=== PATIENT | male | born 1950 | race Caucasian/White ===

== ENCOUNTER 2021-07-12 09:15 | Inpatient (IN) | payer OTHER, MEDICARE ==
--- NOTE | 2021-07-12 09:39 | ED Physician Documentation ---
PD HPI ABD PAIN - Stated complaint Stated Complaint: ABD PX - Chief complaint Chief Complaint: Abd Pain - History obtained from History obtained from: Patient - History of Present Illness Timing - onset: How many days ago (3) Timing - duration: Days (3) Timing - details: Gradual onset, Still present Quality: Cramping, Aching, Pain Location: RLQ Radiation: No: Chest, Lower back Improved by: No: Eating Worsened by: Eating Associated symptoms: Nausea, Diarrhea (loose the past day.). No: Fever, Vomiting, Constipation Similar symptoms before: Has not had sx before Recently seen: Surgery (prostate resection February 2021 without complications.) Review of Systems Constitutional: denies: Fever, Chills Nose: denies: Rhinorrhea / runny nose, Congestion Throat: denies: Sore throat Respiratory: denies: Cough GI: reports: Abdominal Pain, Nausea. denies: Vomiting, Diarrhea (but loose couple of times) : denies: Dysuria PD PAST MEDICAL HISTORY - Past Medical History Cardiovascular: None Respiratory: None Endocrine/Autoimmune: None GI: None : Other (prostate cancer in situ with prostatectomy several months ago. ) - Allergies Allergies/Adverse Reactions: Allergies Allergy/AdvReac Type Severity Reaction Status Date / Time milk Allergy Anaphylaxis Verified 07/12/21 09:31 naproxen [From Aleve] Allergy Anaphylaxis Verified 07/12/21 09:31 Penicillins Allergy Anaphylaxis Verified 07/12/21 09:31 PD ED PE NORMAL - Vitals Vital signs reviewed: Yes - General General: Alert and oriented X 3, No acute distress, Well developed/nourished - HEENT HEENT: Pharynx benign - Neck Neck: Supple, no meningeal sign, No adenopathy - Cardiac Cardiac: RRR, No murmur - Respiratory Respiratory: Clear bilaterally - Abdomen Abdomen: Soft, Non distended, No organomegaly, Other (tender RLQ with local guarding and rebound. No generalized rebound nor percussion tender. ) - Male Male : Deferred - Rectal Rectal: Deferred - Back Back: No CVA TTP - Derm Derm: Normal color, Warm and dry - Extremities Extremities: No edema, No calf tenderness / cord - Neuro Neuro: Alert and oriented X 3, No motor deficit, Normal speech Eye Opening: Spontaneous Motor: Obeys Commands Verbal: Oriented GCS Score: 15 - Psych Psych: Normal mood, Normal affect Results - Vitals Vitals: Vital Signs - 24 hr 07/12/21 09:20 Temperature 36.6 C Heart Rate 93 Respiratory 15 Rate Blood Pressure 143/74 H O2 Saturation 99 Oxygen O2 Source Room air - Labs Labs: Laboratory Tests 07/12/21 07/12/21 09:42 09:42 WBC 10.5 RBC 5.10 Hgb 14.9 Hct 43.5 MCV 85.3 MCH 29.2 MCHC 34.3 RDW 12.2 Plt Count 215 MPV 10.7 Neut # (Auto) 8.6 H Lymph # (Auto) 0.9 L [place] # (Auto) 0.9 Eos # (Auto) 0.1 Baso # (Auto) 0.0 Absolute Nucleated RBC 0.00 Nucleated RBC % 0.0 Sodium 135 Potassium 3.7 Chloride 98 L Carbon Dioxide 23 Anion Gap 14.0 H BUN 26 H Creatinine 1.3 H Estimated GFR (MDRD) 55 L Glucose 118 H Calcium 9.5 Total Bilirubin 2.0 H AST 50 H ALT 58 Alkaline Phosphatase 112 Total Protein 8.6 H Albumin 4.0 Globulin 4.6 H Albumin/Globulin Ratio 0.9 L Lipase 27 - Rads (name of study) abd/pelvic CT Radiology: Prelim report reviewed, Discussed with rads (acute appendicitis with local perforation. ), See rad report PD MEDICAL DECISION MAKING - ED course Complexity details: reviewed results, re-evaluated patient, considered differential, d/w patient, d/w protection consultant (Surgery Dr. Claire) Departure - Departure Disposition: ED Transfer to [facility] Clinical Impression: Abdominal pain Qualifiers: Abdominal location: right lower quadrant Qualified Code(s): R10.31 - Right lower quadrant pain Appendicitis Qualifiers: Appendicitis type: acute appendicitis Acute appendicitis type: with localized peritonitis Appendicitis gangrene presence: without gangrene Appendicitis perforation presence: with perforation Appendicitis abscess presence: without abscess Qualified Code(s): K35.32 - Acute appendicitis with perforation and localized peritonitis, without abscess Condition: Stable Record reviewed to determine appropriate education?: Yes
[2021-07-12 09:47] LABS: BASOPHILS % (AUTO) 0.3 %; EOSINOPHILS # (AUTO) 0.1 10^3/uL (0.0-0.7); EOSINOPHILS % (AUTO) 0.9 %; HCT - HEMATOCRIT 43.5 % (42.0-52.0); HGB - HEMOGLOBIN 14.9 g/dL (14.0-18.0); LYMPHOCYTES # (AUTO) 0.9 10^3/uL (1.5-3.5); LYMPHOCYTES % (AUTO) 8.5 %; MEAN CORPUSCULAR HEMOGLOBIN 29.2 pg (27.0-31.0); MEAN CORPUSCULAR HGB CONC 34.3 g/dL (32.0-36.0); MEAN CORPUSCULAR VOLUME 85.3 fL (80.0-94.0); MEAN PLATELET VOLUME 10.7 fL (7.4-11.4); MONOCYTES # (AUTO) 0.9 10^3/uL (0.0-1.0); MONOCYTES % (AUTO) 8.1 %; NEUTROPHILS # (AUTO) 8.6 10^3/uL (1.5-6.6); NEUTROPHILS % (AUTO) 81.9 %; PLT - PLATELET COUNT 215 10^3/uL (130-450); RED CELL DISTRIBUTION WIDTH 12.2 % (12.0-15.0); WHITE BLOOD COUNT 10.5 x10^3/uL (4.8-10.8)
[2021-07-12] MEDS ORDERED: HYDROmorphone 1 MG/ML CARPUJECT IVP STA (09:58)
[2021-07-12] MEDS ORDERED: SODIUM CHLORIDE 0.9% 1,000 ML IV STA (09:58)
[2021-07-12 10:00] LABS: ALBUMIN/GLOBULIN RATIO 0.9 (1.0-2.2); CALCIUM 9.5 mg/dL (8.5-10.3); CREATININE 1.3 mg/dL (0.6-1.2); POTASSIUM 3.7 mmol/L (3.5-5.0); TOTAL PROTEIN 8.6 g/dL (6.7-8.2)
[2021-07-12] MEDS ORDERED: IOVERSOL 320 100 ML VIAL IVP ONE ×2 (10:14→18:08)
--- NOTE | 2021-07-12 11:12 | CT Report ---
PROCEDURE: Abdomen/Pelvis W INDICATIONS: RLQ pain for 3 days, increasing CONTRAST: IV CONTRAST: Optiray 320 ml: 100 PO CONTRAST: *NO PO CONTRAST TECHNIQUE: After the administration of IV contrast, 5 mm thick sections acquired from the diaphragms to the symp hysis. 5 mm thick coronal and sagittal reformats were acquired. For radiation dose reduction, the f ollowing was used: automated exposure control, adjustment of mA and/or kV according to patient size. COMPARISON: None. FINDINGS: ABDOMEN: Lung bases: No acute findings. Heart:Normal in size. No pericardial effusion. Liver: Normal. Gallbladder: Negative Bile ducts: Normal. Pancreas: Normal. Spleen: Normal. Adrenals: Normal. Kidneys and ureters: Normal. Stomach and duodenum: Normal. Bowel: There is prominent right lower quadrant pericecal inflammatory changes, trace right lower quad rant fluid and few bubbles of extraluminal gas. The appendix appears hyperemic and enlarged measuring approximately 9 mm in diameter although not well seen due to inflammatory changes. No definite appen dicolith seen. No discrete abscess seen. There is incidental colonic diverticulosis. Other: Elsewhere, no free fluid Abdominal nodes: Normal. Aorta: Normal in size. IVC: Normal. Ventral wall: Normal. PELVIS: Bladder and reproductive: Unremarkable. Pelvic nodes: Normal. Inguinal: No hernia. Bones: No vertebral body compression fracture. No suspicious bone lesion. IMPRESSION: Perforated acute appendicitis, with a few scattered foci of intraperitoneal free air. No appendicolit h seen. Findings (including all critical results) and recommendations were personally telephoned and discusse d with Dr. Malcolm in the emergency department on 07-12-21 11:07 Reviewed by: Torito Méndez MD on 07/12/2021 11:11 AM PST Approved by: Torito Méndez MD on 07/12/2021 11:11 AM PST Station ID: [id number]
[2021-07-12] MEDS ORDERED: metroNIDAZOLE 500 MG/100 ML 500 MG/100 ML BAG IV ONE (11:18)
[2021-07-12] MEDS ORDERED: cefTRIAXone 1 GM VIAL IVP STA (11:18)
[2021-07-12] MEDS ORDERED: LACTATED RINGERS 1,000 ML IV STA (11:40)
--- NOTE | 2021-07-12 12:05 | SURGERY HX AND PHYSICAL(T) ---
Surgical History & Physical - Chief Complaint/HPI Chief Complaint: RLQ abdominal pain History of Present Illness: 71-year-old male from [place] visiting his son here in the [place] developed abdominal pain 3 days ago. Pain has persisted and localized to the right lower quadrant abdomen. He has been anorexic but no significant nausea or vomiting. He has had loose bowel movements. His only previous abdominal surgery was a robotic prostatectomy done 6 months ago. 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 He is no longer on anticoagulation. - PMH/PSH/Social Hx Does the pt have a hx of MRSA?: No Neurological History: None Cardiovascular: None Respiratory: None Endocrine/Autoimmune: None Gastrointestinal: None Urinary: Other (prostate cancer in situ with prostatectomy several months ago. ) - Home Meds and Allergies Allergies/Adverse Reactions: Allergies Allergy/AdvReac Type Severity Reaction Status Date / Time milk Allergy Anaphylaxis Verified 07/12/21 09:31 naproxen [From Aleve] Allergy Anaphylaxis Verified 07/12/21 09:31 Penicillins Allergy Anaphylaxis Verified 07/12/21 09:31 - Review of Systems Constitutional: No: Fever, Chills Respiratory: No: Shortness of breath, Cough - Vital Signs Heart Rate: 93 Blood Pressure: 143/74 Temperature: 36.6 C Respiratory Rate: 15 O2 Saturation: 99 Weight (kg): 79.832 kg Height: 1.78 m - Physical Exam General Appearance: positive: No acute distress Eyes Bilatera: positive: Normal inspection ENT: positive: ENT inspection nml Neck: positive: Nml inspection Respiratory: positive: No respiratory distress Cardiovascular: positive: Regular rate & rhythm Abdomen: positive: Other (Not distended, localized tenderness in the right lower quadrant. No generalized tenderness or rebound. Negative Rovsing's sign.) Neurologic/Psychiatric: positive: Oriented x3 - Patient Review Patient Review: Problems were reviewed with the patient during this visit. Medications were reviewed with the patient during this visit. Allergies were reviewed this patient during this visit. Pertinent Tests Reviewed: All pertitent test for this patient were reviewed. - Assessment & Plan Assessment and Plan: 71-year-old male with 3-day history of abdominal pain localizing the right lower quadrant with localized tenderness on exam and CT scan showing appendicitis and probable contained perforation of the appendix. Patient is receiving Ancef and Flagyl and will be taken to the operating room for a laparoscopic or possible open appendectomy. Risks of surgery have been discussed with the patient and he has signed consent to proceed.
[2021-07-12] MEDS ORDERED: ATROPINE ABBOJECT 1 MG/10 ML SYRINGE IVP PRN (12:52)
[2021-07-12] MEDS ORDERED: NALOXONE 0.4 MG/ML VIAL IVP PRN (12:52)
[2021-07-12] MEDS ORDERED: HYDROmorphone 0.5 MG/0.5 ML SYRINGE IVP PRN (12:52)
[2021-07-12] MEDS ORDERED: ONDANSETRON 4 MG/2 ML VIAL IVP PRN (12:52)
[2021-07-12] MEDS ORDERED: MORPHINE 2 MG/ML CARPUJECT IVP PRN (12:52)
[2021-07-12] MEDS ORDERED: fentaNYL 100 MCG/2 ML VIAL IVP PRN (12:52)
--- NOTE | 2021-07-12 12:52 | ANESTHESIA ---
Pre-Anesthesia VS, & Labs - Diagnosis Acute appendicitis - Procedure Lap Appy Vital Signs: Temp Pulse Resp BP Pulse Ox 36.6 C 93 15 143/74 H 99 07/12/21 12:11 07/12/21 12:11 07/12/21 12:11 07/12/21 12:11 07/12/21 12:11 Height: 5 ft 10 in Weight (kg): 79.832 kg Body Mass Index: 25.2 BMI Classification: Overweight - NPO >8 hours Last Fluid Intake: 0400 H2O - Lab Results Current Lab Results: Laboratory Tests 07/12/21 09:42: Sodium 135, Potassium 3.7, Chloride 98 L, Carbon Dioxide 23, Anion Gap 14.0 H, BUN 26 H, Creatinine 1.3 H, Estimated GFR (MDRD) 55 L, Glucose 118 H, Calcium 9.5, Total Bilirubin 2.0 H, AST 50 H, ALT 58, Alkaline Phosphatase 112, Total Protein 8.6 H, Albumin 4.0, Globulin 4.6 H, Albumin/Globulin Ratio 0.9 L, Lipase 27 07/12/21 09:42: WBC 10.5, RBC 5.10, Hgb 14.9, Hct 43.5, MCV 85.3, MCH 29.2, MCHC 34.3, RDW 12.2, Plt Count 215, MPV 10.7, Neut # (Auto) 8.6 H, Lymph # (Auto) 0.9 L, [place] # (Auto) 0.9, Eos # (Auto) 0.1, Baso # (Auto) 0.0, Absolute Nucleated RBC 0.00, Nucleated RBC % 0.0 Fish Bones: 07/12/21 09:42 07/12/21 09:42 Home Medications and Allergies Active Medications Lactated Ringer's (Lr) 1,000 mls @ 250 mls/hr IV .Q4H STA Stop: 07/12/21 15:39 Last Admin: 07/12/21 11:42 Dose: 250 mls/hr Documented by: Allergies/Adverse Reactions: Allergies Allergy/AdvReac Type Severity Reaction Status Date / Time milk Allergy Anaphylaxis Verified 07/12/21 09:31 naproxen [From Aleve] Allergy Anaphylaxis Verified 07/12/21 09:31 Penicillins Allergy Anaphylaxis Verified 07/12/21 09:31 Anes History & Medical History - Anesthetic History Anesthesia Complications: reports: Slow wake-up Family history of Anesthesia Complications: Denies Family history of Malignant Hyperthermia: Denies - Medical History Cardiovascular: reports: High cholesterol Pulmonary: reports: Other (Snores, scheduled for sleep study) Gastrointestinal: reports: GERD Urinary: reports: Other (prostate cancer in situ with prostatectomy several months ago. ) Neuro: reports: None Musculoskeletal: reports: None Endocrine/Autoimmune: reports: None Blood Disorders: reports: None Skin: reports: None Smoking Status: Former smoker (Quit 01/2021. 52 yr pack history) Psychosocial: reports: No issues indicated History of Cancer?: Yes Other Past Medical History: Prostatectomy 2020 s/p prostate cancer - Surgical History General: reports: Colonoscopy Eyes Ears Nose Throat (EENT): reports: Cataracts Urologic: reports: Prostatic surgery Exam General: Alert, Oriented x3, Cooperative, No acute distress Dental: WNL Mouth Openin Fingerbreadth Neck Mobility: Normal Mallampati classification: II Thyromental Distance: 4-6 cm Mental/Cognitive Status: Alert/Oriented X3, Normal for patient Plan Anesthesia Type: General Consent for Procedure(s) Verified and Reviewed: Yes Code Status: Attempt Resuscitation ASA classification: 2-Mild systemic disease Is this case an emergency?: Yes
[2021-07-12] MEDS ORDERED: BUPIVACAINE 0.25% PF 30 ML VIAL ONE (12:54)
[2021-07-12] MEDS ORDERED: LACTATED RINGERS 1,000 ML IV SCH ×2 (13:00→16:00)
[2021-07-12] MEDS ORDERED: PROPOFOL 200 MG/20 ML VIAL IVP ONE (13:27)
[2021-07-12] MEDS ORDERED: fentaNYL 100 MCG/2 ML VIAL ONE ×2 (13:27→13:43)
[2021-07-12] MEDS ORDERED: LIDOCAINE-MPF 2% 5 ML VIAL ONE (13:27)
[2021-07-12] MEDS ORDERED: ROCURONIUM 50 MG/5 ML VIAL ONE (13:27)
[2021-07-12 13:28] LABS: B. PARAPERTUSSIS- RESP PCR PAN NOT DETECTED; B. PERTUSSIS- RESP PCR PANEL NOT DETECTED; C. PNEUMONIAE- RESP PCR PANEL NOT DETECTED; CORONAVIRUS 229E-RESP PCR NOT DETECTED; CORONAVIRUS HKU1-RESP PCR NOT DETECTED; CORONAVIRUS NL63-RESP PCR NOT DETECTED; CORONAVIRUS OC43-RESP PCR NOT DETECTED; HUMAN METAPNEUMOVIRUS NOT DETECTED; INFLUENZA A- RESP PCR PANEL NOT DETECTED; INFLUENZA B - RESP PCR PANEL NOT DETECTED; M. PNEUMONIAE- RESP PCR PANEL NOT DETECTED; PARAINFLUENZA VIRUS 1 NOT DETECTED; PARAINFLUENZA VIRUS 2 NOT DETECTED; PARAINFLUENZA VIRUS 3 NOT DETECTED; PARAINFLUENZA VIRUS 4 NOT DETECTED; RHINOVIRUS/ENTEROVIRUS NOT DETECTED; RSV- RESP PCR PANEL NOT DETECTED; SARS-CoV-2 -RESP PCR PANEL NOT DETECTED
[2021-07-12] MEDS ORDERED: DEXAMETHASONE 4 MG/ML VIAL ONE (13:35)
[2021-07-12] MEDS ORDERED: ONDANSETRON 4 MG/2 ML VIAL ONE (13:35)
[2021-07-12] MEDS ORDERED: BUPIVACAINE 0.25% PF 30 ML VIAL SUBQ ONE (13:47)
[2021-07-12] MEDS ORDERED: SUGAMMADEX 200 MG/2 ML VIAL IVP ONE (14:41)
[2021-07-12] MEDS ORDERED: LACTATED RINGERS 500 ML IV ONE (14:56)
--- NOTE | 2021-07-12 15:18 | ANESTHESIA POST OP EVALUATION ---
Anesthesia Post Eval - Post Anesthesia Eval Vitals: Last Vital Signs Temp 36.6 C 07/12/21 15:10 Pulse 84 07/12/21 15:10 Resp 17 07/12/21 15:10 BP 160/85 H 07/12/21 15:10 Pulse Ox 95 07/12/21 15:10 CV Function Including HR & BP: Stable Pain Control: Satisfactory Nausea & Vomiting: Negative Mental Status: Patient Participates Respiratory Status: Airway Patent Hydration Status: Satisfactory Anesthesia Complications: None
--- NOTE | 2021-07-12 15:20 | OPERATIVE REPORT ---
Operative Report - General Admit Date: 07/12/21 Procedure Date: 07/12/21 Planned Procedure: Lap appendectomy Pre-Op Diagnosis: Perforated appendicitis, localized Procedure Performed: Lap appendectomy Post Op Diagnosis: Perforated appendicitis, localized - Procedure Note Primary Surgeon: Rashawn Claire Anesthesia Provider: Shanique SANCHEZ Anesthesia Technique: General ET tube Estimated Blood Loss (mL): 100 Indications: Perforated appendicitis, localized to RLQ Findings: Localized perforation with extensive adhesions and adjacent small bowel inflammation Complications: none - Other Other Information/Narrative: The patient was taken to the operating room where general anesthesia was induced and the abdomen was prepped with ChloraPrep and sterilely draped in usual fashion. Scalpel was used to make incision at the umbilicus and Metzenbaum scissors used to enter the peritoneum and a 5 mm trocar was introduced atraumatically. CO2 was insufflated and laparoscope was inserted and used to visualize the anterior abdominal wall as a 12 mm and 5 mm trocar placed in the left lower abdomen and right lower abdomen, respectively. The appendix was identified and seen to be adhered to the right pelvic wall. The appendix had perforated into the mesoappendix and there was some purulent drainage from this area. Adhesions to the right pelvic wall were taken down with blunt and saline irrigation as well as cautery. The appendix was eventually mobilized at its origin. 2 applications of surgical stapler to the mesoappendix with vascular load were used to divide the mesoappendix and a single application of stapler across the base of the appendix completed the resection. The appendix was placed into an Endopouch and withdrawn through the 12 mm trocar site. The bed of dissection had some oozing which was controlled with cautery.The right lower quadrant was irrigated well with saline and aspirated dry. A Keenan drain was placed in the right lower quadrant through the right lower quadrant 5 mm trocar site. The drain was sutured to skin with a 2-0 nylon stitch. CO2 was desufflated from the abdomen and all trochars were removed. Fascia at the u mbilicus and left lower quadrant incisions were closed with 2-0 Vicryl. Skin incisions were closed with 4-0 Monocryl and Dermabond. A dressing was applied to the drain site in the right lower quadrant. The patient was extubated and taken to recovery in stable condition.
--- NOTE | 2021-07-12 16:23 | PHARMACY PROGRESS NOTE ---
- Best Possible Medication History Admit Date and Time: 07/12/21 1148 Processed by: Pharmacy Medication History completed: Yes Patient Interview: Completed Secondary Source(s): Pharmacy records, Insurance records As the person ultimately responsible for medication therapy, providers are able to order a medication from an existing home medication list in [facility] via the "Reconcile Routine" prior to Confirmation of that medication by accounting support specialist. Such practice is discouraged except when the physician, in their clinical judgment, deems that a medical need exists for a medication without regard to previous use.
[2021-07-12] MEDS: HYDROmorphone 0.5 MG/0.5 ML SYRINGE IVP PRN ×2 (16:49→18:51)
[2021-07-12] MEDS: SODIUM CHLORIDE 0.9% 1,000 ML IV SCH (16:54)
[2021-07-12] MEDS: metroNIDAZOLE 500 MG/100 ML 500 MG/100 ML BAG IV SCH (20:50)
[2021-07-12] MEDS: ATORVASTATIN 10 MG TABLET PO SCH (20:53)
[2021-07-12] MEDS: oxyCODONE 5 MG TABLET PO PRN (20:53)
[2021-07-12] MEDS: ACETAMINOPHEN 500 MG TABLET PO PRN (21:22)
[2021-07-13] MEDS: oxyCODONE 5 MG TABLET PO PRN ×5 (01:03→19:58)
[2021-07-13] MEDS: metroNIDAZOLE 500 MG/100 ML 500 MG/100 ML BAG IV SCH ×3 (03:36→19:38)
[2021-07-13] MEDS: SODIUM CHLORIDE 0.9% 1,000 ML IV SCH ×2 (03:36→15:50)
[2021-07-13] MEDS: PANTOPRAZOLE 40 MG TABLET PO SCH (06:11)
[2021-07-13] MEDS: ACETAMINOPHEN 500 MG TABLET PO PRN ×3 (06:11→19:58)
[2021-07-13 06:13] LABS: BASOPHILS % (AUTO) 0.3 %; EOSINOPHILS % (AUTO) 0.1 %; HCT - HEMATOCRIT 34.1 % (42.0-52.0); HGB - HEMOGLOBIN 11.6 g/dL (14.0-18.0); LYMPHOCYTES # (AUTO) 0.9 10^3/uL (1.5-3.5); LYMPHOCYTES % (AUTO) 11.5 %; MEAN CORPUSCULAR VOLUME 88.1 fL (80.0-94.0); MEAN PLATELET VOLUME 10.3 fL (7.4-11.4); MONOCYTES # (AUTO) 0.8 10^3/uL (0.0-1.0); MONOCYTES % (AUTO) 9.5 %; NEUTROPHILS # (AUTO) 6.3 10^3/uL (1.5-6.6); NEUTROPHILS % (AUTO) 78.3 %; PLT - PLATELET COUNT 168 10^3/uL (130-450); RED BLOOD COUNT 3.87 10^6/uL (4.70-6.10); RED CELL DISTRIBUTION WIDTH 12.4 % (12.0-15.0)
[2021-07-13] MEDS: cefTRIAXone 2 GM in SODIUM CHLORIDE 0.9% MINIBAG 100 ML IV SCH (09:49)
[2021-07-13] MEDS: ENOXAPARIN 80 MG/0.8 ML SYRINGE SUBQ SCH ×2 (09:49→19:39)
[2021-07-13] MEDS: TADALAFIL 5 MG PO SCH (09:50)
--- NOTE | 2021-07-13 15:47 | PROVIDER PROGRESS NOTE ---
Subjective - General Admit Date: 07/12/21 Procedure Date: 07/12/21 Post Op Days: 1 Procedure Performed: Lap appy - Review of Systems Wound/Incisions: positive: Healing well Drain Type: Keenan Drain Output Description: Serous General: positive: No symptoms, Fever (early this AM) HEENT: positive: No symptoms Pulmonary: positive: No symptoms Cardiovascular: positive: No symptoms Gastrointestinal: positive: Other (Very hungry). negative: Nausea, Vomiting Genitourinary: positive: No symptoms All Other Systems: positive: Reviewed and negative - Other Other Information/Narrative: The patient reports his pain is reasonably well controlled. Uncomfortable but manageable. Very hungry Objective - Patient Data Reviewed Vital Signs: Yes Vital Signs: Vital Signs x48h Temp Pulse Resp BP Pulse Ox 07/13/21 12:32 37.1 C 74 17 121/67 96 07/13/21 08:00 36.7 C 66 16 112/64 96 Weight: Weight 07/11/21 07/12/21 07/13/21 23:59 23:59 23:59 Weight (kg) 77.836 kg Intake & Output: Intake and Output Totals x24h 07/11/21 07/12/21 07/13/21 23:59 23:59 23:59 Intake Total 3938.333 1771.667 Output Total 70 325 Balance 3868.333 1446.667 - Lab Results Lab Results: 07/13/21 06:02 07/12/21 09:42 Other Lab Results: Lab Results x24hrs 07/13/21 Range/Units 06:02 WBC 8.0 (4.8-10.8) x10^3/uL RBC 3.87 L (4.70-6.10) 10^6/uL Hgb 11.6 L (14.0-18.0) g/dL Hct 34.1 L (42.0-52.0) % MCV 88.1 (80.0-94.0) fL MCH 30.0 (27.0-31.0) pg MCHC 34.0 (32.0-36.0) g/dL RDW 12.4 (12.0-15.0) % Plt Count 168 (130-450) 10^3/uL MPV 10.3 (7.4-11.4) fL Neut # (Auto) 6.3 (1.5-6.6) 10^3/uL Lymph # (Auto) 0.9 L (1.5-3.5) 10^3/uL [place] # (Auto) 0.8 (0.0-1.0) 10^3/uL Eos # (Auto) 0.0 (0.0-0.7) 10^3/uL Baso # (Auto) 0.0 (0.0-0.1) 10^3/uL Absolute Nucleated RBC 0.00 x10^3/uL Nucleated RBC % 0.0 /100WBC - Current Medications Current Medications: Current Medications Generic Name Dose Route Start Last Admin Trade Name Freq PRN Reason Stop Dose Admin Acetaminophen 500 mg 07/12/21 21:11 07/13/21 06:11 Acetaminophen 500 Mg Tablet PO 500 mg Q4HR PRN Administration Pain or Fever > 38C (100.4F) Atorvastatin Calcium 10 mg 07/12/21 21:00 07/12/21 20:53 Atorvastatin 10 Mg Tablet PO 10 mg QPM SCOTT Administration Enoxaparin Sodium 80 mg 07/13/21 09:00 07/13/21 09:49 Enoxaparin 80 Mg/0.8 Ml Syringe SUBQ 80 mg BID SCOTT Administration Hydromorphone HCl 0.5 mg 07/12/21 16:30 07/12/21 18:51 Hydromorphone 0.5 Mg/0.5 Ml Syringe IVP 0.5 mg Q2H PRN Administration PAIN Ceftriaxone Sodium 2 gm/ 100 mls @ 200 mls/hr 07/13/21 09:00 07/13/21 11:42 Sodium Chloride IV Infused DAILY SCOTT Infusion Sodium Chloride 1,000 mls @ 100 mls/hr 07/12/21 16:00 07/13/21 03:36 Normal Saline 0.9% IV 100 mls/hr .Q10H SCOTT Administration Metronidazole 500 mg in 100 mls @ 100 mls/hr 07/12/21 20:00 07/13/21 14:59 Flagyl 500 Mg/100 Ml IV Infused Q8H SCOTT Infusion Oxycodone HCl 5 mg 07/12/21 16:29 07/13/21 12:11 Oxycodone 5 Mg Tablet PO 5 mg Q4HR PRN Administration PAIN Pantoprazole Sodium 40 mg 07/13/21 07:00 07/13/21 06:11 Pantoprazole 40 Mg Tablet PO 40 mg QDAC SCOTT Administration Tadalafil 5 Mg 1 each 07/13/21 09:00 07/13/21 09:50 PO Not Given DAILY SCOTT - Physical Exam Wound/Incisions: positive: Dressing dry and intact General Appearance: positive: No acute distress, Alert Eyes Bilateral: positive: Normal inspection Respiratory: positive: No respiratory distress, Breath sounds nml Cardiovascular: positive: Regular rate & rhythm Abdomen: positive: Nml bowel sounds, Tenderness, Other (Drain is serous and thin) Neurologic/Psychiatric: positive: Oriented x3 ABX Reporting Has patient been on IV antibiotics over the past 48 hours?: Yes Impression/Plan - Problem List Problem List: 1. Acute suppurative appendicitis - s/p appendectomy 2. Continue Rocephin 3. No nausea - will advance diet 4. Recheck labs in the AM
[2021-07-13] MEDS: ATORVASTATIN 10 MG TABLET PO SCH (19:38)
[2021-07-13] MEDS: SENNA 8.6 MG TABLET PO SCH (19:38)
[2021-07-14] MEDS: oxyCODONE 5 MG TABLET PO PRN (00:21)
[2021-07-14] MEDS: ACETAMINOPHEN 500 MG TABLET PO PRN ×3 (00:21→20:27)
[2021-07-14] MEDS ORDERED: METOCLOPRAMIDE 10 MG/2 ML VIAL IVP PRN (01:21)
[2021-07-14] MEDS ORDERED: CALCIUM CARBONATE CHEW 500 MG TABLET PO PRN (01:25)
[2021-07-14] MEDS: ONDANSETRON 4 MG/2 ML VIAL IVP PRN ×2 (02:37→19:33)
[2021-07-14] MEDS: SODIUM CHLORIDE 0.9% 1,000 ML IV SCH ×3 (02:41→18:33)
[2021-07-14] MEDS: metroNIDAZOLE 500 MG/100 ML 500 MG/100 ML BAG IV SCH ×3 (03:54→19:33)
[2021-07-14] MEDS: PANTOPRAZOLE 40 MG TABLET PO SCH (06:07)
[2021-07-14 06:19] LABS: BASOPHILS % (AUTO) 0.3 %; EOSINOPHILS # (AUTO) 0.1 10^3/uL (0.0-0.7); EOSINOPHILS % (AUTO) 1.2 %; HCT - HEMATOCRIT 38.4 % (42.0-52.0); LYMPHOCYTES # (AUTO) 0.8 10^3/uL (1.5-3.5); LYMPHOCYTES % (AUTO) 8.8 %; MEAN CORPUSCULAR HEMOGLOBIN 29.3 pg (27.0-31.0); MEAN CORPUSCULAR HGB CONC 33.9 g/dL (32.0-36.0); MEAN CORPUSCULAR VOLUME 86.5 fL (80.0-94.0); MEAN PLATELET VOLUME 10.3 fL (7.4-11.4); MONOCYTES # (AUTO) 0.6 10^3/uL (0.0-1.0); MONOCYTES % (AUTO) 7.4 %; NEUTROPHILS # (AUTO) 7.1 10^3/uL (1.5-6.6); NEUTROPHILS % (AUTO) 81.8 %; PLT - PLATELET COUNT 195 10^3/uL (130-450); RED BLOOD COUNT 4.44 10^6/uL (4.70-6.10); RED CELL DISTRIBUTION WIDTH 12.6 % (12.0-15.0); WHITE BLOOD COUNT 8.6 x10^3/uL (4.8-10.8)
[2021-07-14] MEDS: SENNA 8.6 MG TABLET PO SCH (09:26)
[2021-07-14] MEDS: ENOXAPARIN 80 MG/0.8 ML SYRINGE SUBQ SCH ×2 (09:26→20:27)
[2021-07-14] MEDS: TADALAFIL 5 MG PO SCH (09:28)
[2021-07-14] MEDS: cefTRIAXone 2 GM in SODIUM CHLORIDE 0.9% MINIBAG 100 ML IV SCH (09:33)
--- NOTE | 2021-07-14 12:46 | PROVIDER PROGRESS NOTE ---
Subjective - General Admit Date: 07/12/21 Procedure Date: 07/12/21 Post Op Days: 2 Procedure Performed: Lap appy - Review of Systems Wound/Incisions: positive: Dressing dry and intact Drain Type: Keenan Drain Output Description: Serous General: positive: No symptoms, Fever (early this AM) HEENT: positive: No symptoms Pulmonary: positive: No symptoms Cardiovascular: positive: No symptoms Gastrointestinal: positive: Other (Very hungry). negative: Nausea, Vomiting Genitourinary: positive: No symptoms All Other Systems: positive: Reviewed and negative - Other Other Information/Narrative: Nausea and vomiting over night and this morning. Drain remains serous. Afebrile x 24 hours. Objective - Patient Data Reviewed Vital Signs: Yes Vital Signs: Vital Signs x48h Temp Pulse Resp BP Pulse Ox 07/14/21 12:09 36.6 C 91 20 151/87 H 94 07/14/21 07:48 37 C 90 16 148/82 H 95 07/14/21 06:24 37.1 C 98 18 156/90 H 96 Weight: Weight 07/12/21 07/13/21 07/14/21 23:59 23:59 23:59 Weight (kg) 77.836 kg Intake & Output: Intake and Output Totals x24h 07/12/21 07/13/21 07/14/21 23:59 23:59 23:59 Intake Total 3938.333 3800.000 961.667 Output Total 70 335 1315 Balance 3868.333 3465.000 -353.333 - Lab Results Lab Results: 07/14/21 06:03 07/12/21 09:42 Other Lab Results: Lab Results x24hrs 07/14/21 Range/Units 06:03 WBC 8.6 (4.8-10.8) x10^3/uL RBC 4.44 L (4.70-6.10) 10^6/uL Hgb 13.0 L (14.0-18.0) g/dL Hct 38.4 L (42.0-52.0) % MCV 86.5 (80.0-94.0) fL MCH 29.3 (27.0-31.0) pg MCHC 33.9 (32.0-36.0) g/dL RDW 12.6 (12.0-15.0) % Plt Count 195 (130-450) 10^3/uL MPV 10.3 (7.4-11.4) fL Neut # (Auto) 7.1 H (1.5-6.6) 10^3/uL Lymph # (Auto) 0.8 L (1.5-3.5) 10^3/uL [place] # (Auto) 0.6 (0.0-1.0) 10^3/uL Eos # (Auto) 0.1 (0.0-0.7) 10^3/uL Baso # (Auto) 0.0 (0.0-0.1) 10^3/uL Absolute Nucleated RBC 0.00 x10^3/uL Nucleated RBC % 0.0 /100WBC - Current Medications Current Medications: Current Medications Generic Name Dose Route Start Last Admin Trade Name Freq PRN Reason Stop Dose Admin Acetaminophen 500 mg 07/12/21 21:11 07/14/21 06:08 Acetaminophen 500 Mg Tablet PO 500 mg Q4HR PRN Administration Pain or Fever > 38C (100.4F) Atorvastatin Calcium 10 mg 07/12/21 21:00 07/13/21 19:38 Atorvastatin 10 Mg Tablet PO 10 mg QPM SCOTT Administration Enoxaparin Sodium 80 mg 07/13/21 09:00 07/14/21 09:26 Enoxaparin 80 Mg/0.8 Ml Syringe SUBQ 80 mg BID SCOTT Administration Hydromorphone HCl 0.5 mg 07/12/21 16:30 07/12/21 18:51 Hydromorphone 0.5 Mg/0.5 Ml Syringe IVP 0.5 mg Q2H PRN Administration PAIN Ceftriaxone Sodium 2 gm/ 100 mls @ 200 mls/hr 07/13/21 09:00 07/14/21 11:29 Sodium Chloride IV Infused DAILY SCOTT Infusion Sodium Chloride 1,000 mls @ 100 mls/hr 07/12/21 16:00 07/14/21 02:41 Normal Saline 0.9% IV 100 mls/hr .Q10H SCOTT Administration Metronidazole 500 mg in 100 mls @ 100 mls/hr 07/12/21 20:00 07/14/21 12:07 Flagyl 500 Mg/100 Ml IV 100 mls/hr Q8H SCOTT Administration Ondansetron HCl 4 mg 07/14/21 01:22 07/14/21 02:37 Ondansetron 4 Mg/2 Ml Vial IVP 4 mg Q6HR PRN Administration Nausea / Vomiting Oxycodone HCl 5 mg 07/12/21 16:29 07/14/21 00:21 Oxycodone 5 Mg Tablet PO 5 mg Q4HR PRN Administration PAIN Pantoprazole Sodium 40 mg 07/13/21 07:00 07/14/21 06:07 Pantoprazole 40 Mg Tablet PO 40 mg QDAC SCOTT Administration Tadalafil 5 Mg 1 each 07/13/21 09:00 07/14/21 09:28 PO Not Given DAILY SCOTT Senna 8.6 - 17.2 mg 07/13/21 18:04 07/14/21 09:26 Senna 8.6 Mg Tablet PO 8.6 mg DAILY SCOTT Administration - Physical Exam Wound/Incisions: positive: Dressing dry and intact General Appearance: positive: No acute distress Eyes Bilateral: positive: Normal inspection, PERRL, EOMI Neck: positive: Nml inspection, No JVD Respiratory: positive: No respiratory distress, Breath sounds nml Cardiovascular: positive: Regular rate & rhythm Abdomen: positive: Other (Appropriately tender with hypoactive bowel tones) Skin: positive: Color nml Neurologic/Psychiatric: positive: Oriented x3 ABX Reporting Has patient been on IV antibiotics over the past 48 hours?: Yes Impression/Plan - Problem List Problem List: 1. Acute suppurative appendicitis with perforation - improving wbcs and drain output. Continue Rocephin 2. Post operative ileus - not unexpected in this setting. Return to NPO, add reglan 3. All vitals within acceptable limits
[2021-07-14] MEDS: METOCLOPRAMIDE 10 MG/2 ML VIAL IVP SCH ×3 (13:27→23:58)
[2021-07-14] MEDS: ATORVASTATIN 10 MG TABLET PO SCH (20:27)
[2021-07-15] MEDS: metroNIDAZOLE 500 MG/100 ML 500 MG/100 ML BAG IV SCH ×3 (04:20→19:55)
[2021-07-15] MEDS: ONDANSETRON 4 MG/2 ML VIAL IVP PRN (06:16)
[2021-07-15] MEDS: PANTOPRAZOLE 40 MG TABLET PO SCH (06:16)
[2021-07-15] MEDS: SODIUM CHLORIDE 0.9% 1,000 ML IV SCH ×2 (07:00→13:55)
[2021-07-15] MEDS: METOCLOPRAMIDE 10 MG/2 ML VIAL IVP SCH ×4 (07:05→23:56)
[2021-07-15 07:18] LABS: BASOPHILS % (AUTO) 0.2 %; EOSINOPHILS % (AUTO) 0.3 %; HCT - HEMATOCRIT 39.5 % (42.0-52.0); HGB - HEMOGLOBIN 13.7 g/dL (14.0-18.0); LYMPHOCYTES # (AUTO) 0.7 10^3/uL (1.5-3.5); LYMPHOCYTES % (AUTO) 7.2 %; MEAN CORPUSCULAR HEMOGLOBIN 29.7 pg (27.0-31.0); MEAN CORPUSCULAR HGB CONC 34.7 g/dL (32.0-36.0); MEAN CORPUSCULAR VOLUME 85.7 fL (80.0-94.0); MEAN PLATELET VOLUME 10.1 fL (7.4-11.4); MONOCYTES # (AUTO) 0.6 10^3/uL (0.0-1.0); MONOCYTES % (AUTO) 6.8 %; NEUTROPHILS # (AUTO) 7.9 10^3/uL (1.5-6.6); NEUTROPHILS % (AUTO) 85.1 %; PLT - PLATELET COUNT 247 10^3/uL (130-450); RED BLOOD COUNT 4.61 10^6/uL (4.70-6.10); RED CELL DISTRIBUTION WIDTH 12.6 % (12.0-15.0); WHITE BLOOD COUNT 9.3 x10^3/uL (4.8-10.8)
[2021-07-15] MEDS: cefTRIAXone 2 GM in SODIUM CHLORIDE 0.9% MINIBAG 100 ML IV SCH (08:57)
[2021-07-15] MEDS: ENOXAPARIN 80 MG/0.8 ML SYRINGE SUBQ SCH ×2 (08:58→21:20)
[2021-07-15] MEDS: SENNA 8.6 MG TABLET PO SCH (09:00)
[2021-07-15] MEDS: TADALAFIL 5 MG PO SCH (09:00)
--- NOTE | 2021-07-15 15:47 | PROVIDER PROGRESS NOTE ---
Subjective - General Admit Date: 07/12/21 Procedure Date: 07/12/21 Post Op Days: 3 Procedure Performed: Lap appy - Review of Systems Wound/Incisions: positive: Dressing dry and intact Drain Type: Keenan Drain Output Description: Serous General: positive: No symptoms, Fever (early this AM) HEENT: positive: No symptoms Pulmonary: positive: No symptoms Cardiovascular: positive: No symptoms Gastrointestinal: positive: Other (Very hungry). negative: Nausea, Vomiting Genitourinary: positive: No symptoms All Other Systems: positive: Reviewed and negative - Other Other Information/Narrative: Another episode of emesis this AM. Patient says this was not associated with nausea but was due to reflux. He denies any nausea and would like to try some food. Had a small bowel movement today. He has been afebrile. Pain is reasonably well controlled. Objective - Patient Data Reviewed Vital Signs: Yes Vital Signs: Vital Signs x48h Temp Pulse Resp BP Pulse Ox 07/15/21 11:18 36.9 C 84 19 145/81 H 94 Intake & Output: Intake and Output Totals x24h 07/13/21 07/14/21 07/15/21 23:59 23:59 23:59 Intake Total 3800.000 2161.667 1300 Output Total 335 1525 660 Balance 3465.000 636.667 640 - Lab Results Lab Results: 07/15/21 07:11 07/12/21 09:42 Other Lab Results: Lab Results x24hrs 07/15/21 Range/Units 07:11 WBC 9.3 (4.8-10.8) x10^3/uL RBC 4.61 L (4.70-6.10) 10^6/uL Hgb 13.7 L (14.0-18.0) g/dL Hct 39.5 L (42.0-52.0) % MCV 85.7 (80.0-94.0) fL MCH 29.7 (27.0-31.0) pg MCHC 34.7 (32.0-36.0) g/dL RDW 12.6 (12.0-15.0) % Plt Count 247 (130-450) 10^3/uL MPV 10.1 (7.4-11.4) fL Neut # (Auto) 7.9 H (1.5-6.6) 10^3/uL Lymph # (Auto) 0.7 L (1.5-3.5) 10^3/uL [place] # (Auto) 0.6 (0.0-1.0) 10^3/uL Eos # (Auto) 0.0 (0.0-0.7) 10^3/uL Baso # (Auto) 0.0 (0.0-0.1) 10^3/uL Absolute Nucleated RBC 0.00 x10^3/uL Nucleated RBC % 0.0 /100WBC - Current Medications Current Medications: Current Medications Generic Name Dose Route Start Last Admin Trade Name Freq PRN Reason Stop Dose Admin Acetaminophen 500 mg 07/12/21 21:11 07/14/21 20:27 Acetaminophen 500 Mg Tablet PO 500 mg Q4HR PRN Administration Pain or Fever > 38C (100.4F) Atorvastatin Calcium 10 mg 07/12/21 21:00 07/14/21 20:27 Atorvastatin 10 Mg Tablet PO 10 mg QPM SCOTT Administration Calcium Carbonate/Glycine 500 mg 07/14/21 01:25 07/15/21 05:28 Calcium Carbonate Chew 500 Mg Tablet PO 07/17/21 01:24 500 mg BID PRN Administration Heartburn Enoxaparin Sodium 80 mg 07/13/21 09:00 07/15/21 08:58 Enoxaparin 80 Mg/0.8 Ml Syringe SUBQ 80 mg BID SCOTT Administration Hydromorphone HCl 0.5 mg 07/12/21 16:30 07/12/21 18:51 Hydromorphone 0.5 Mg/0.5 Ml Syringe IVP 0.5 mg Q2H PRN Administration PAIN Ceftriaxone Sodium 2 gm/ 100 mls @ 200 mls/hr 07/13/21 09:00 07/15/21 09:30 Sodium Chloride IV Infused DAILY SCOTT Infusion Sodium Chloride 1,000 mls @ 100 mls/hr 07/12/21 16:00 07/15/21 13:55 Normal Saline 0.9% IV 100 mls/hr .Q10H SCOTT Administration Metronidazole 500 mg in 100 mls @ 100 mls/hr 07/12/21 20:00 07/15/21 12:40 Flagyl 500 Mg/100 Ml IV Infused Q8H SCOTT Infusion Metoclopramide HCl 5 mg 07/14/21 13:00 07/15/21 11:40 Metoclopramide 10 Mg/2 Ml Vial IVP 5 mg Q6HR SCOTT Administration Ondansetron HCl 4 mg 07/14/21 01:22 07/15/21 06:16 Ondansetron 4 Mg/2 Ml Vial IVP 4 mg Q6HR PRN Administration Nausea / Vomiting Oxycodone HCl 5 mg 07/12/21 16:29 07/14/21 00:21 Oxycodone 5 Mg Tablet PO 5 mg Q4HR PRN Administration PAIN Tadalafil 5 Mg 1 each 07/13/21 09:00 07/15/21 09:00 PO Not Given DAILY SCOTT Senna 8.6 - 17.2 mg 07/13/21 18:04 07/15/21 09:00 Senna 8.6 Mg Tablet PO Not Given DAILY SCOTT - Physical Exam Wound/Incisions: positive: Healing well, Other (drain outut is serous) General Appearance: positive: No acute distress, Alert Eyes Bilateral: positive: Normal inspection, PERRL, EOMI ENT: positive: ENT inspection nml Respiratory: positive: Chest non-tender, No respiratory distress Cardiovascular: positive: Regular rate & rhythm Abdomen: positive: Nml bowel sounds, Tenderness ABX Reporting Has patient been on IV antibiotics over the past 48 hours?: Yes Impression/Plan - Problem List Problem List: 1. Perforated appendicitis with abscess - improving clinically. WBC within normal range but differently not quite normal. Will recheck labs and reasses in the AM 2. Vomiting and reflux - restart patients outpatient PPI as he reports it works much better than protonix 3. FEN - had a bowel movement today so will try to advance diet once again.
[2021-07-15] MEDS: LANSOPRAZOLE 15 MG CAPSULE PO SCH (16:32)
[2021-07-15] MEDS: ATORVASTATIN 10 MG TABLET PO SCH (21:20)
[2021-07-16] MEDS: SODIUM CHLORIDE 0.9% 1,000 ML IV SCH (00:57)
[2021-07-16] MEDS: metroNIDAZOLE 500 MG/100 ML 500 MG/100 ML BAG IV SCH (03:39)
[2021-07-16 05:52] LABS: BASOPHILS % (AUTO) 0.3 %; EOSINOPHILS # (AUTO) 0.2 10^3/uL (0.0-0.7); EOSINOPHILS % (AUTO) 2.7 %; HCT - HEMATOCRIT 36.1 % (42.0-52.0); HGB - HEMOGLOBIN 12.1 g/dL (14.0-18.0); LYMPHOCYTES # (AUTO) 1.2 10^3/uL (1.5-3.5); LYMPHOCYTES % (AUTO) 14.8 %; MEAN CORPUSCULAR HEMOGLOBIN 29.4 pg (27.0-31.0); MEAN CORPUSCULAR HGB CONC 33.5 g/dL (32.0-36.0); MEAN CORPUSCULAR VOLUME 87.6 fL (80.0-94.0); MEAN PLATELET VOLUME 10.1 fL (7.4-11.4); MONOCYTES # (AUTO) 0.6 10^3/uL (0.0-1.0); MONOCYTES % (AUTO) 7.9 %; NEUTROPHILS # (AUTO) 5.8 10^3/uL (1.5-6.6); NEUTROPHILS % (AUTO) 73.7 %; PLT - PLATELET COUNT 245 10^3/uL (130-450); RED BLOOD COUNT 4.12 10^6/uL (4.70-6.10); RED CELL DISTRIBUTION WIDTH 12.5 % (12.0-15.0); WHITE BLOOD COUNT 7.9 x10^3/uL (4.8-10.8)
[2021-07-16 06:04] LABS: ALBUMIN 2.9 g/dL (3.2-5.5); BILIRUBIN,TOTAL 0.6 mg/dL (0.2-1.0); CALCIUM 8.3 mg/dL (8.5-10.3); POTASSIUM 3.4 mmol/L (3.5-5.0); TOTAL PROTEIN 5.7 g/dL (6.7-8.2)
[2021-07-16] MEDS: METOCLOPRAMIDE 10 MG/2 ML VIAL IVP SCH (06:42)
[2021-07-16] MEDS: LANSOPRAZOLE 15 MG CAPSULE PO SCH (06:43)
[2021-07-16] MEDS ORDERED: PANTOPRAZOLE 40 MG TABLET PO SCH (07:00)
[2021-07-16 07:33] VITALS: BP 147/73
--- NOTE | 2021-07-16 08:50 | Discharge Plan ---
Discharge Plan Problem Reviewed?: Yes Disposition: Home, Self Care Condition: Stable Prescriptions: oxyCODONE [Roxicodone] 5 mg PO Q4-6H PRN #14 tablet PRN Reason: Pain Ondansetron Odt [Zofran Odt] 4 mg TL Q6H PRN #10 tablet PRN Reason: Nausea / Vomiting Diet: Regular Activity Restrictions: 5 pound lifting limit Shower Restrictions: No (Do not sit in bathwater for 2 weeks) Driving Restrictions: Yes (Not while using narcotic pain meds) Assessment: Perforated appendicitis - resolved No Smoking: If you smoke, Please STOP! Call for help. Follow-up with: JIMMIE DIXON MD [Primary Care Provider] -
[2021-07-16] MEDS: cefTRIAXone 2 GM in SODIUM CHLORIDE 0.9% MINIBAG 100 ML IV SCH (09:00)
[2021-07-16] MEDS: SENNA 8.6 MG TABLET PO SCH (09:00)
[2021-07-16] MEDS: ENOXAPARIN 80 MG/0.8 ML SYRINGE SUBQ SCH (09:01)
[2021-07-16] MEDS: TADALAFIL 5 MG PO SCH (09:02)
--- NOTE | 2021-07-16 09:06 | DISCHARGE SUMMARY ---
"Discharge Summary Admit Date: 07/12/21 Discharge Date: 07/16/21 Discharging Provider: Connie Code Status: Attempt Resuscitation Condition at Discharge: Stable Discharge Disposition: 01 Home, Self Care - DIAGNOSES Admission Diagnoses: Perforated appendicitis with abscess Discharge Diagnoses with Status of Each Condition: Resolved - HPI History of Present Illness: 71-year-old male from [place] visiting his son here in the [place] developed abdominal pain 3 days ago. Pain has persisted and localized to the right lower quadrant abdomen. He has been anorexic but no significant nausea or vomiting. He has had loose bowel movements. His only previous abdominal surgery was a robotic prostatectomy done 6 months ago. 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 He is no longer on anticoagulation. - CONSULTS | PROCEDURES Consultations: None Procedures: Laparoscopic appendectomy with drain placement - HOSPITAL COURSE Hospital Course: Following an uneventful operation, the patient is brought to the [facility] unit for continued convalescence, IV antibiotics, and supportive care. Nausea and vomiting were an issue in his early postoperative course. Pain control has been easily managed. Today he is tolerating a regular diet, his white blood cell count and differential have returned to normal, he is ambulating without assistance, and he is ready for discharge.His drain has been removed.He is discharged to his home in the care of his family.He will follow-up with his primary care physician or surgeon in [place] upon his return. - ALLERGIES Allergies/Adverse Reactions: Allergies Allergy/AdvReac Type Severity Reaction Status Date / Time milk Allergy Anaphylaxis Verified 07/12/21 09:31 naproxen [From Aleve] Allergy Anaphylaxis Verified 07/12/21 09:31 Penicillins Allergy Anaphylaxis Verified 07/12/21 09:31 - MEDICATIONS Home Medications: Ambulatory Orders Medication Instructions Recorded Confirmed Atorvastatin [Lipitor] 10 mg PO QPM 07/12/21 07/12/21 Omeprazole Magnesium [Prilosec] 10 mg PO DAILY 07/12/21 07/12/21 Tadalafil [Cialis] 5 mg PO DAILY 07/12/21 07/12/21 Ondansetron Odt [Zofran Odt] 4 mg TL Q6H PRN #10 tablet 07/16/21 oxyCODONE [Roxicodone] 5 mg PO Q4-6H PRN #14 tablet 12/02/21 - PHYSICAL EXAM AT DISCHARGE General Appearance: positive: No acute distress, Alert Eyes Bilateral: positive: Normal inspection, PERRL, EOMI ENT: positive: ENT inspection nml, Pharynx nml, No signs of dehydration Neck: positive: Nml inspection Respiratory: positive: Chest non-tender, No respiratory distress, Breath sounds nml Cardiovascular: positive: Regular rate & rhythm Peripheral Pulses: positive: 1+ Abdomen: positive: Nml bowel sounds, Tenderness, Other (Wounds are clean and dry and well approximated) Back: positive: Nml inspection Skin: positive: Color nml Extremities: positive: Non-tender Neurologic/Psychiatric: positive: Oriented x3 - LABS Result Diagrams: 07/16/21 05:43 07/16/21 05:43 - QUALITY (Female Hip Fx Only) Was patient sent home on osteoporosis medication?: No - FOLLOW UP Follow Up: With PCP and surgeon in [place] upon his return - TIME SPENT Time Spent in Discharge (Minutes): 20"
== END 2021-07-16 10:50 | disposition home or self-care (01) | DRG 340 ==
LOC: ED 09:15 → MS2 11:48
PROVIDERS: ADMIT Surgery; ATTEND Surgery
PROC: 0DTJ4ZZ Resection of Appendix, Percutaneous Endoscopic Approach (ICD-10-PCS; principal; 2021-07-12 13:30)
DX: K35.32 Acute appendicitis with perforation, localized peritonitis, and gangrene, without abscess (principal); K21.9 Gastro-esophageal reflux disease without esophagitis; E78.00 Pure hypercholesterolemia, unspecified; Z87.891 Personal history of nicotine dependence; Z79.899 Other long term (current) drug therapy; Z86.718 Personal history of other venous thrombosis and embolism; Z85.46 Personal history of malignant neoplasm of prostate
CPT/HCPCS: 0202U; 36415; 74177; 80053; 83690; 85025; 96361; 96365; 96375; 99284; A9270; J1170; J1650; J2765; J7120; Q9967; 81001; 81003; 87086